=== PATIENT | male | born 1975 | race American Indian/Alaskan Native ===

== ENCOUNTER 2016-12-04 01:36 | Emergency (ER) | payer SELFPAY ==
[2016-12-04 02:03] VITALS: BP 139/88
--- NOTE | 2016-12-04 05:10 | Emergency Department Report ---
HPI - General Chief Complaint: Skin Rash Time Seen by Provider: 12/04/16 05:08 - HPI HPI: Patient is a 41-year-old male presents to ED complaining of rash over his hands and body. Patient states it itches intermittently and itching is worse at night. Patient's states that he has white verma all over his anterior hands Patient denies fevers/chills/nausea/vomiting/allergy to any medication. Patient denies any new substances. ED Past Medical Hx - Past Medical History Previous Medical History?: Yes Additional medical history: SCABIES - Surgical History Past Surgical History?: Yes Additional Surgical History: perirectal abscess - Social History Smoking Status: Current Every Day Smoker Substance Use Type: Alcohol - Medications Home Medications: Home Medications Medication Instructions Recorded Confirmed Last Taken Type HYDROcodone/ACETAMINOPHEN [[place] 1 each PO Q4-6H PRN #20 tablet 10/17/14 Unknown Rx 7.5-325 mg TAB] Ciprofloxacin HCl [Cipro] 250 mg PO BID #10 tablet 10/18/14 Unknown Rx HYDROcodone/APAP 5-325 [[place] 1 each PO Q6HR PRN #30 tablet 10/18/14 Unknown Rx 5-325 mg TAB] Diphenhydramine HCl [Benadryl 25 mg PO DAILY #30 tablet 12/04/16 Unknown Rx Allergy TAB] Permethrin 5% [Acticin 5% CREAM] 1 applicatio TP ONCE #1 tube 12/04/16 Unknown Rx Selenium Sulfide/Menthol [Selsun 1 applic TP DAILY #1 bottle 12/04/16 Unknown Rx Blue 1% Shampoo] ED Review of Systems ROS: Stated complaint: ITCHING ALL OVER Other details as noted in HPI Constitutional: denies: chills, fever Eyes: denies: eye pain, eye discharge, vision change ENT: denies: ear pain, throat pain, dental pain, hearing loss Respiratory: denies: cough, shortness of breath, wheezing Cardiovascular: denies: chest pain, palpitations Endocrine: no symptoms reported Gastrointestinal: denies: abdominal pain, nausea, diarrhea Genitourinary: denies: urgency, dysuria Musculoskeletal: denies: back pain, joint swelling, arthralgia Skin: denies: rash, lesions Neurological: denies: headache, weakness, paresthesias Psychiatric: denies: anxiety, depression Hematological/Lymphatic: denies: easy bleeding, easy bruising Physical Exam - Physical Exam Vital Signs: Vital Signs 12/04/16 02:00 Temperature 98.1 F Pulse Rate 64 Respiratory 20 Rate Blood Pressure 139/88 O2 Sat by Pulse 99 Oximetry Physical Exam: GENERAL: Alert and oriented x3, no apparent distress, Normal Gait, atraumatic. HEAD: Head is normocephalic and a-traumatic. EYES: Extra ocular muscles are intact. Pupils are equal, round, and reactive to light and accommodation. NECK: Supple. Non edematous, No carotid bruits. No lymphadenopathy or thyromegaly. LUNGS: Symetrical with respiration, No wheezing, no rales or crackles, CTAB. HEART: S1, S2 present, regular rate and rhythm without murmur, no rubs, no gallops. ABDOMEN: No organomegaly was noted,Positive bowel sounds, soft, and non- distended. . Nontender to palpation on all Quadrants, NO CVA tenderness. EXTREMITIES/MUSCULOSKELETAL: No cyanosis, clubbing, rash, lesions or edema. Full ROM bilaterally. UE/LE Pulses 2+ bilaterally. NEUROLOGIC: No focal Deficit, Cranial nerves II through XII are grossly intact. No loss of sensation, PSYCHIATRIC: Mood is congruent with affect, denies suicidal or homicidal ideations. SKIN: Warm and dry, No lesions, No ulceration or induration present. Excoriation verma all over her anterior surfaces of the hands bilaterally and anterior surfaces of the arm. Mild peripheral verma seen on right hand second and third interdigit space ED Course Vital Signs 12/04/16 02:00 Temperature 98.1 F Pulse Rate 64 Respiratory 20 Rate Blood Pressure 139/88 O2 Sat by Pulse 99 Oximetry ED Medical Decision Making - Medical Decision Making 41-year-old male presents with scabies dermatitis. Discussed with patient to follow instructions and take medication as prescribed. Discussed with patient to wash all clothing and sheets with warm water. Discussed with patient to follow up with primary care physician or vacuum cleaner repair person. Patient and his vital signs stable. No acute or respiratory distress. Family states he understands and will follow-up. Critical care attestation.: If time is entered above; I have spent that time in minutes in the direct care of this critically ill patient, excluding procedure time. ED Disposition Clinical Impression: Scabies Disposition: DISCHARGED TO HOME OR SELFCARE Is pt being admited?: No Does the pt Need Aspirin: No Condition: Stable Instructions: Scabies (ED) Prescriptions: Diphenhydramine HCl [Benadryl Allergy TAB] 25 mg PO DAILY #30 tablet Permethrin 5% [Acticin 5% CREAM] 1 applicatio TP ONCE #1 tube Selenium Sulfide/Menthol [Selsun Blue 1% Shampoo] 1 applic TP DAILY #1 bottle Referrals: PRIMARY CARE, [Primary Care Provider] - 3-5 Days [facility] [Outside] - 3-5 Days [facility] [Outside] - 3-5 Days [facility] [Outside] - 3-5 Days Forms: Accompanied Note, Work/School Release Form(ED) Time of Disposition: 05:29
== END 2016-12-04 05:27 | disposition home or self-care (01) ==
LOC: ED 01:36
DX: B86 Scabies (principal); F17.200 Nicotine dependence, unspecified, uncomplicated
CPT/HCPCS: 99282

== ENCOUNTER 2017-10-19 00:05 | Emergency (ER) | payer SELFPAY ==
[2017-10-19 00:24] VITALS: BP 134/86
== END 2017-10-19 01:25 | disposition left against medical advice (07) ==
LOC: ED 00:05
DX: R07.9 Chest pain, unspecified (principal); Z53.21 Procedure and treatment not carried out due to patient leaving prior to being seen by health care provider
CPT/HCPCS: 93005; 93010

== ENCOUNTER 2020-07-13 12:36 | Emergency (ER) | payer SELFPAY ==
--- NOTE | 2020-07-13 15:11 | XRay Report ---
CHEST 2 VIEWS INDICATION / CLINICAL INFORMATION: SHORTNESS OF BREATH. COMPARISON: None available. FINDINGS: SUPPORT DEVICES: None. HEART / MEDIASTINUM: No significant abnormality. LUNGS / PLEURA: Diffuse moderate. Particular thickening characteristic for bronchitis. No bacterial p neumonia No pneumothorax. ADDITIONAL FINDINGS: No significant additional findings. IMPRESSION: 1. No acute findings. Signer Name: Onesimo Pena MD Signed: 07/13/2020 3:07 PM Workstation Name: [id number]
[2020-07-14] MEDS ORDERED: ASPIRIN 81 MG TAB CHEW PO ONE (06:19)
--- NOTE | 2020-07-14 06:27 | Emergency Department Report ---
ED General Adult HPI - General Chief complaint: Dyspnea/Respdistress Stated complaint: CP Time Seen by Provider: 07/14/20 06:16 Source: patient Mode of arrival: Ambulatory Limitations: No Limitations - History of Present Illness Initial comments: Patient presents emergency department chief complaint of shortness of breath and chest pain has been present for 2 day. Patient describes chest pain is pressure-like in nature without any radiation. Patient denies abdominal pain or headache. -: Sudden Location: chest Radiation: non-radiation Severity scale (0 -10): 7 Quality: other (Pressure) Consistency: constant Improves with: none Worsens with: none Associated Symptoms: denies other symptoms Treatments Prior to Arrival: none - Related Data Previous Rx's Medication Instructions Recorded Last Taken Type HYDROcodone/ACETAMINOPHEN [[place] 1 each PO Q4-6H PRN #20 tablet 10/17/14 Unknown Rx 7.5-325 mg TAB] Ciprofloxacin HCl [Cipro] 250 mg PO BID #10 tablet 10/18/14 Unknown Rx HYDROcodone/APAP 5-325 [[place] 1 each PO Q6HR PRN #30 tablet 10/18/14 Unknown Rx 5-325 mg TAB] Diphenhydramine HCl [Benadryl 25 mg PO DAILY #30 tablet 12/04/16 Unknown Rx Allergy TAB] Permethrin 5% [Acticin 5% CREAM] 1 applicatio TP ONCE #1 tube 12/04/16 Unknown Rx Selenium Sulfide/Menthol [Selsun 1 applic TP DAILY #1 bottle 12/04/16 Unknown Rx Blue 1% Shampoo] Allergies Allergy/AdvReac Type Severity Reaction Status Date / Time No Known Allergies Allergy Verified 07/13/20 13:27 ED Review of Systems ROS: Stated complaint: CP Other details as noted in HPI Comment: All other systems reviewed and negative Constitutional: denies: chills, fever Eyes: denies: eye pain, eye discharge, vision change ENT: denies: ear pain, throat pain Respiratory: denies: cough, shortness of breath, wheezing Cardiovascular: denies: chest pain, palpitations Endocrine: no symptoms reported Gastrointestinal: denies: abdominal pain, nausea, diarrhea Genitourinary: denies: urgency, dysuria Musculoskeletal: denies: back pain, joint swelling, arthralgia Skin: denies: rash, lesions Neurological: denies: headache, weakness, paresthesias Psychiatric: denies: anxiety, depression Hematological/Lymphatic: denies: easy bleeding, easy bruising ED Past Medical Hx - Past Medical History Previous Medical History?: No Additional medical history: SCABIES - Surgical History Past Surgical History?: No Additional Surgical History: perirectal abscess - Social History Smoking Status: Current Every Day Smoker Substance Use Type: None - Medications Home Medications: Home Medications Medication Instructions Recorded Confirmed Last Taken Type HYDROcodone/ACETAMINOPHEN [[place] 1 each PO Q4-6H PRN #20 tablet 10/17/14 10/18/14 Unknown Rx 7.5-325 mg TAB] Ciprofloxacin HCl [Cipro] 250 mg PO BID #10 tablet 10/18/14 Unknown Rx HYDROcodone/APAP 5-325 [[place] 1 each PO Q6HR PRN #30 tablet 10/18/14 Unknown Rx 5-325 mg TAB] Diphenhydramine HCl [Benadryl 25 mg PO DAILY #30 tablet 12/04/16 Unknown Rx Allergy TAB] Permethrin 5% [Acticin 5% CREAM] 1 applicatio TP ONCE #1 tube 12/04/16 Unknown Rx Selenium Sulfide/Menthol [Selsun 1 applic TP DAILY #1 bottle 12/04/16 Unknown Rx Blue 1% Shampoo] ED Physical Exam - General Limitations: No Limitations General appearance: alert, in no apparent distress - Head Head exam: Present: atraumatic, normocephalic - Eye Eye exam: Present: normal appearance, PERRL, EOMI - ENT ENT exam: Present: mucous membranes moist - Neck Neck exam: Present: normal inspection - Respiratory Respiratory exam: Present: normal lung sounds bilaterally. Absent: respiratory distress - Cardiovascular Cardiovascular Exam: Present: regular rate, normal rhythm. Absent: systolic murmur, diastolic murmur, rubs, gallop - GI/Abdominal GI/Abdominal exam: Present: soft, normal bowel sounds. Absent: distended, tenderness - Rectal Rectal exam: Present: deferred - Extremities Exam Extremities exam: Present: normal inspection - Back Exam Back exam: Present: normal inspection - Neurological Exam Neurological exam: Present: alert, oriented X3, CN II-XII intact. Absent: motor sensory deficit - Psychiatric Psychiatric exam: Present: normal affect, normal mood - Skin Skin exam: Present: warm, dry, intact, normal color. Absent: rash ED Course Vital Signs 07/13/20 07/14/20 16:52 04:16 Temperature 98.8 F 98.1 F Pulse Rate 89 64 Respiratory 18 20 Rate Blood Pressure 112/73 Blood Pressure 130/79 [Right] O2 Sat by Pulse 98 Oximetry ED Medical Decision Making - Lab Data Result diagrams: 07/14/20 06:44 07/14/20 06:44 Lab Results 07/14/20 07/14/20 07/14/20 Range/Units 06:44 06:44 06:44 WBC 7.2 (4.5-11.0) K/mm3 RBC 4.92 (3.65-5.03) M/mm3 Hgb 15.2 (11.8-15.2) gm/dl Hct 46.0 H (35.5-45.6) % MCV 94 (84-94) fl MCH 31 (28-32) pg MCHC 33 (32-34) % RDW 14.0 (13.2-15.2) % Plt Count 190 (140-440) K/mm3 Lymph % (Auto) 18.6 (13.4-35.0) % [place] % (Auto) 11.4 H (0.0-7.3) % Eos % (Auto) 1.5 (0.0-4.3) % Baso % (Auto) 0.6 (0.0-1.8) % Lymph # (Auto) 1.3 (1.2-5.4) K/mm3 [place] # (Auto) 0.8 (0.0-0.8) K/mm3 Eos # (Auto) 0.1 (0.0-0.4) K/mm3 Baso # (Auto) 0.0 (0.0-0.1) K/mm3 Seg Neutrophils % 67.9 (40.0-70.0) % Seg Neutrophils # 4.9 (1.8-7.7) K/mm3 PT 11.1 L (12.2-14.9) Sec. INR 0.79 L (0.87-1.13) APTT 32.7 (24.2-36.6) Sec. D-Dimer 295.46 H (0-234) ng/mlDDU Sodium 141 (137-145) mmol/L Potassium 3.7 (3.6-5.0) mmol/L Chloride 102.2 (98-107) mmol/L Carbon Dioxide 30 (22-30) mmol/L Anion Gap 13 mmol/L BUN 20 (9-20) mg/dL Creatinine 1.1 (0.8-1.3) mg/dL Estimated GFR > 60 ml/min BUN/Creatinine Ratio 18 % Glucose 124 H (75-100) mg/dL Calcium 9.4 (8.4-10.2) mg/dL Total Bilirubin 0.30 (0.1-1.2) mg/dL AST 68 H (5-40) units/L ALT 47 (7-56) units/L Alkaline Phosphatase 153 H (35-129) units/L Troponin T < 0.010 (0.00-0.029) ng/mL NT-Pro-B Natriuret Pep (0-450) pg/mL Total Protein 7.3 (6.3-8.2) g/dL Albumin 4.0 (3.9-5) g/dL Albumin/Globulin Ratio 1.2 % Lipase 42 (13-60) units/L 07/14/20 07/14/20 Range/Units 06:44 08:20 WBC (4.5-11.0) K/mm3 RBC (3.65-5.03) M/mm3 Hgb (11.8-15.2) gm/dl Hct (35.5-45.6) % MCV (84-94) fl MCH (28-32) pg MCHC (32-34) % RDW (13.2-15.2) % Plt Count (140-440) K/mm3 Lymph % (Auto) (13.4-35.0) % [place] % (Auto) (0.0-7.3) % Eos % (Auto) (0.0-4.3) % Baso % (Auto) (0.0-1.8) % Lymph # (Auto) (1.2-5.4) K/mm3 [place] # (Auto) (0.0-0.8) K/mm3 Eos # (Auto) (0.0-0.4) K/mm3 Baso # (Auto) (0.0-0.1) K/mm3 Seg Neutrophils % (40.0-70.0) % Seg Neutrophils # (1.8-7.7) K/mm3 PT (12.2-14.9) Sec. INR (0.87-1.13) APTT (24.2-36.6) Sec. D-Dimer (0-234) ng/mlDDU Sodium (137-145) mmol/L Potassium (3.6-5.0) mmol/L Chloride (98-107) mmol/L Carbon Dioxide (22-30) mmol/L Anion Gap mmol/L BUN (9-20) mg/dL Creatinine (0.8-1.3) mg/dL Estimated GFR ml/min BUN/Creatinine Ratio % Glucose (75-100) mg/dL Calcium (8.4-10.2) mg/dL Total Bilirubin (0.1-1.2) mg/dL AST (5-40) units/L ALT (7-56) units/L Alkaline Phosphatase (35-129) units/L Troponin T < 0.010 (0.00-0.029) ng/mL NT-Pro-B Natriuret Pep 22.89 (0-450) pg/mL Total Protein (6.3-8.2) g/dL Albumin (3.9-5) g/dL Albumin/Globulin Ratio % Lipase (13-60) units/L - EKG Data -: EKG Interpreted by Me EKG shows normal: sinus rhythm Rate: normal - Radiology Data Radiology results: report reviewed - Medical Decision Making Discussed results in detail with the patient including his laboratory values, CT scan, chest x-ray. Critical care attestation.: If time is entered above; I have spent that time in minutes in the direct care of this critically ill patient, excluding procedure time. ED Disposition Clinical Impression: Dyspnea, Chest pain Disposition: DC-01 TO HOME OR SELFCARE Is pt being admited?: No Does the pt Need Aspirin: No Condition: Stable Instructions: Chest Pain (ED) Additional Instructions: return if worse Referrals: PRIMARY CARE, [Primary Care Provider] - 3-5 Days SRIDHAR RUBIO MD [Staff Physician] - 3-5 Days CONY DOOLEY MD [Staff Physician] - 3-5 Days RONEL BRIGGS MD [Staff Physician] - 3-5 Days [facility], [Provider Group] - 3-5 Days [facility] [Provider Group] - 3-5 Days [facility] [Outside] - 3-5 Days Time of Disposition: 09:56
[2020-07-14 07:28] LABS: Basophils % (Auto) 0.6 % (0.0-1.8); Eosinophils # (Auto) 0.1 K/mm3 (0.0-0.4); Eosinophils % (Auto) 1.5 % (0.0-4.3); Hemoglobin 15.2 gm/dl (11.8-15.2); Lymphocytes # (Auto) 1.3 K/mm3 (1.2-5.4); Lymphocytes % (Auto) 18.6 % (13.4-35.0); Mean Corpuscular HGB Conc 33 % (32-34); Mean Corpuscular Volume 94 fl (84-94); Monocytes # (Auto) 0.8 K/mm3 (0.0-0.8); Monocytes % (Auto) 11.4 % (0.0-7.3); Platelet Count 190 K/mm3 (140-440); Red Blood Count 4.92 M/mm3 (3.65-5.03)
[2020-07-14 07:37] LABS: INR 0.79 (0.87-1.13)
[2020-07-14 07:38] LABS: Partial Thromboplastin Time 32.7 Sec. (24.2-36.6)
--- NOTE | 2020-07-14 07:42 | XRay Report ---
CHEST 1 VIEW INDICATION: Chest Pain COMPARISON: One day prior. FINDINGS: Support devices: None Heart: Normal and unchanged Lungs/Pleura: No acute pulmonary or pleural findings. IMPRESSION: 1. No acute disease. Signer Name: Wilfredo Coleman MD Signed: 07/14/2020 7:38 AM Workstation Name: [id number]
[2020-07-14 07:52] LABS: Alanine Aminotransferase 47 units/L (7-56); BUN/Creatinine Ratio 18; Blood Urea Nitrogen 20 mg/dL (9-20); Calcium 9.4 mg/dL (8.4-10.2); Hemolysis Index 22
--- NOTE | 2020-07-14 09:23 | Cat Scan Report ---
. CTA CHEST WITH CONTRAST INDICATION : Chest pain, shortness of breath for one day. Elevated d-dimer.. TECHNIQUE: Axial imaging performed through the chest, with contrast bolus timing set to maximize opa cification of the pulmonary arteries. Sagittal and coronal reformatted images. 3-plane MIP reformatte d images were obtained. All CT scans at this location are performed using CT dose reduction for ALAR A by means of automated exposure control. 100 mL of intravenous contrast administered. COMPARISON: FINDINGS: Bolus: Contrast bolus timing is adequate. PTE: No filling defect is present to suggest PTE. Mediastinum: Heart and great vessels appear normal. No pathologic mediastinal adenopathy. Lungs: Lungs are clear. Bones: Degenerative changes in the spine with nothing acute. Upper abdomen: Limited imaging of the upper abdomen shows nothing acute. IMPRESSION: Negative for PTE. Clear lungs. Signer Name: Mack Meadows Jr, MD Signed: 07/14/2020 9:19 AM Workstation Name: [id number]
[2020-07-14 10:50] VITALS: BP 123/75
== END 2020-07-14 10:34 | disposition home or self-care (01) ==
LOC: ED 12:36
DX: R06.00 Dyspnea, unspecified (principal); R07.9 Chest pain, unspecified; F17.200 Nicotine dependence, unspecified, uncomplicated; Z79.899 Other long term (current) drug therapy; Z98.890 Other specified postprocedural states
CPT/HCPCS: 36415; 71045; 71046; 71275; 80053; 83690; 83880; 84484; 85025; 85379; 85610; 85730; 93005; 99284; Q9967